=== PATIENT | male | born 1995 | race Caucasian/White ===

== ENCOUNTER 2018-01-01 18:15 | Emergency (ER) | payer OTHER ==
[2018-01-01 20:48] LABS: VENOUS BASE EXCESS -1.4 (-2.0-2.0); VENOUS HCO3 25.4 MEQ/L (23.0-27.0); VENOUS O2 SATURATION 61.9 % (60.0-80.0); VENOUS PARTIAL PRESSURE CO2 50.5 mmHg (38.0-50.0); VENOUS PARTIAL PRESSURE O2 34.7 mmHg (30.0-50.0); VENOUS PH 7.319 UNITS (7.330-7.430); VENOUS STANDARD HCO3 22.4 MEQ/L; VENOUS TOTAL CO2 26.9 MEQ/L (24.0-28.0)
[2018-01-01 20:50] LABS: HEMATOCRIT 43.2 % (42.0-52.0); HEMOGLOBIN 14.1 g/dl (13.5-17.5); MEAN CORPUSCULAR HEMOGLOBIN 28.3 pg (27.0-33.0); MEAN CORPUSCULAR HGB CONC 32.6 g/dl (32.0-36.5); MEAN CORPUSCULAR VOLUME 86.6 fl (80.0-96.0); PLATELET COUNT, AUTOMATED 210 10^3/uL (150-450); RED BLOOD COUNT 4.99 10^6/uL (4.30-6.10); RED CELL DISTRIBUTION WIDTH 13.5 % (11.5-14.5); WHITE BLOOD COUNT 8.5 10^3/uL (4.0-10.0)
[2018-01-01] MEDS: NS 1,000 ML IV (20:51)
[2018-01-01 20:52] LABS: BEDSIDE GLUCOSE 85 MG/DL (70-105)
[2018-01-01 20:58] LABS: ADD MANUAL DIFFER YES; DIFF SLIDE NUMBER 165; POSITIVE DIFF POS FLAG; POSITIVE MORPH POS FLAG
[2018-01-01 21:00] LABS: KETONE, URINE AUTO RFX NEGATIVE (NEGATIVE); LEUKOCYTE ESTERASE UR AUTO RFX NEGATIVE (NEGATIVE); NITRITE, URINE AUTO RFX NEGATIVE (NEGATIVE); RBC, URINE AUTO RFX 2 /HPF (0-3); SPECIFIC GRAVITY UR AUTO RFX 1.008 (1.002-1.035); SQUAM EPITHELIAL CELL UR AURFX 0 /HPF (0-6); WBC, URINE AUTO RFX 0 /HPF (0-3)
[2018-01-01 21:04] LABS: ESTIMATED AVERAGE GLUCOSE 114 MG/DL (60-110); HEMOGLOBIN A1c 5.6 %
[2018-01-01 21:11] LABS: ACETONE/KETONE 2.26 MG/DL (<2.81); ALBUMIN 3.9 GM/DL (3.2-5.2); ALBUMIN/GLOBULIN RATIO 1.18 (1.00-1.93); ALKALINE PHOSPHATASE 106 U/L (45-117); ALT/SGPT 36 U/L (12-78); ANION GAP 7 MEQ/L (8-16); AST/SGOT 29 U/L (7-37); BILIRUBIN,DIRECT 0.2 MG/DL (0.0-0.2); BILIRUBIN,TOTAL 0.5 MG/DL (0.2-1.0); BLOOD UREA NITROGEN 15 MG/DL (7-18); CALCIUM LEVEL 8.5 MG/DL (8.5-10.1); CARBON DIOXIDE LEVEL 28 MEQ/L (21-32); CHLORIDE LEVEL 106 MEQ/L (98-107); CREATININE FOR GFR 1.09 MG/DL (0.70-1.30); GLOMERULAR FILTRATION RATE > 60.0 (>60); GLUCOSE, FASTING 88 MG/DL (70-100); LIPASE 139 U/L (73-393); MAGNESIUM LEVEL 2.4 MG/DL (1.8-2.4); POTASSIUM SERUM 4.2 MEQ/L (3.5-5.1); SODIUM LEVEL 141 MEQ/L (136-145); TOTAL PROTEIN 7.2 GM/DL (6.4-8.2)
[2018-01-01 21:13] LABS: CK-MB VALUE MASS < 1.0 NG/ML (<3.6); CPK CREATINE PHOSPHOKINASE 123 U/L (39-308); MB/CK RELATIVE INDEX 0.81 (< OR =4)
[2018-01-01 21:14] LABS: AMPHETAMINES LEVEL URINE NEGATIVE (NEGATIVE); BARBITURATES URINE NEGATIVE (NEGATIVE); BENZODIAZEPINES URINE NEGATIVE (NEGATIVE); CANNABINOIDS URINE NEGATIVE (NEGATIVE); COCAINE METABOLITE URINE NEGATIVE (NEGATIVE); METHADONE URINE NEGATIVE (NEGATIVE); OPIATES URINE NEGATIVE (NEGATIVE); PHENCYCLIDINE URINE NEGATIVE (NEGATIVE)
[2018-01-01 21:36] LABS: ETHYL ALCOHOL (ETHANOL) < 0.003 % (0.000-0.010)
[2018-01-01 21:48] LABS: ATYPICAL LYMPH 30 % (0-5); BASOPHILS 1 % (0-4); LYMPHOCYTES 33 % (16-52); MONOCYTES 10 % (0-8); NEUTROPHILS 26 % (35-75)
[2018-01-01 21:49] LABS: PLATELET ESTIMATE NORMAL (NORMAL)
== END 2018-01-01 23:02 | disposition home or self-care (01) ==
LOC: M ED 18:15
DX: R63.4 Abnormal weight loss (principal); R53.81 Other malaise; F17.200 Nicotine dependence, unspecified, uncomplicated
CPT/HCPCS: G0480

== ENCOUNTER → 2018-10-11 | Outpatient (CLI) | payer OTHER ==
--- NOTE | 2018-10-11 18:58 | REP ---
MRI RIGHT KNEE WITHOUT CONTRAST: 10/11/2018. Clinical history: Right knee pain since 04/19. Concern for medial aspect of the knee with meniscus, anteromedial soft tissue injury or other. Technique: Axial fat suppressed T2 with coronal and sagittal PD and T2 fat suppressed sequences provided. Please note our protocol does not allow for contrast administration with this clinical history. Findings: No prior study. Both the ACL and PCL are intact without a tear. Transverse meniscal ligaments are seen anterior and posterior to the PCL which is a normal finding. There is fluid tracking into the intercondylar notch and a prominent suprapatellar effusion as well. Both medial and lateral menisci are without intrasubstance signal changes to suggest a tear communicating to an articular surface. No meniscal capsular injury about the medial meniscus. I see no significant chondromalacia in the medial compartment. No bone bruise or fracture. There is no popliteal fossa cyst. Medial collateral ligamentous complex is intact. Medial patellar retinaculum is attenuated with some small amount of fluid in bursa deep to it adjacent to the medial femoral condyle peripheral margin. The lateral meniscus also shows no intrameniscal signal communication to an articular surface that would suggest a tear. No significant chondromalacia in the lateral compartment. There is a bone bruise centrally to peripherally over the lateral femoral condyle without tibial plateau finding. I do not see dark signal fracture line on the PD weighted sequence. The proximal tibial fibular articulation was unremarkable. Popliteus tendon is intact. Lateral collateral ligamentous complex is preserved. There is fluid deep to the lateral patellar retinaculum in the bursal recess from the suprapatellar effusion. Patella shows a few millimeters of lateral subluxation and there is chondromalacia, grade 1 lateral facet and trochlea. Some increased signal of the attachment of the medial patellar retinaculum to the patella suggesting strain or partial tear. I do not see a defect in the medial facet or bone bruise in the lateral femoral condyle in a pattern that would suggest patellar dislocations. The quadriceps and patellar tendons are grossly intact. Suprapatellar effusion seen is without evidence of synovial plica. I see no signal abnormality in the vastus medialis muscle as it courses inferiorly along the medial aspect of the distal femur. Likewise, the other anterior posterior compartment muscles grossly unremarkable. Impression: 1. Mild to moderate tricompartment effusion with some chondromalacia patella, mild, evidence of strain or partial tear at the insertion of the medial patellar retinaculum on the patella and a few mm of lateral patellar subluxation. No synovial plica, patellar fracture or bone bruise. 2. Cruciate ligaments, collateral ligamentous complexes, menisci and the extensor tendons grossly intact. No popliteal fossa cyst. 3. Some attenuation of the medial patellar retinaculum and slight thickening of the lateral patellar retinaculum. Bone bruise lateral femoral condyle centrally to peripherally without fracture line. No other finding. Electronically Signed by Rico Doherty MD 10/11/2018 09:00 P
== END ==
LOC: M RAD 12:43
PROVIDERS: ATTEND Specialist/Technologist Athletic Trainer
DX: M25.461 Effusion, right knee (principal); M22.41 Chondromalacia patellae, right knee